=== PATIENT | male | born 1975 | race Caucasian/White ===

== ENCOUNTER 2018-05-18 21:35 | Emergency (ER) | payer BC ==
[~2018-05-18] VITALS: Ht 182.9 cm; Wt 117.9 kg
[~2018-05-18 21:35] MED LIST: BACTRIM DS TAB1 EACH PO; NOHOMEMEDICATIONS
[2018-05-18 21:58] LABS: ABSOLUTE BASOPHILS 0.1 thou/uL (0.0-0.2); ABSOLUTE EOSINOPHILS 0.1 thou/uL (0.0-0.7); ABSOLUTE LYMPHOCYTES 4.7 thou/uL (0.8-5.3); ABSOLUTE MONOCYTES 1.2 thou/uL (0.0-1.2); ABSOLUTE NEUTROPHILS 5.3 thou/uL (1.6-8.1); BASOPHILS 0.7 %; EOSINOPHILS 1.2 %; MCH 31.3 pg (26.0-34.0); MCHC 33.3 g/dL (28.0-37.0); MCV 93.8 fL (80.0-100.0); MONOCYTES 10.2 %; MPV 7.8 fl. (7.2-11.1); NUCLEATED RBCS 0 /100WBC; PLATELET COUNT* 350 thou/uL (150-400); POLYS 46.9 %; RDW-CV 13.5 % (10.5-14.5); WBC 11.4 thou/uL (4.0-11.0)
[2018-05-18 22:11] LABS: ANION GAP 7 mmol/L (7-16); BUN 13 mg/dL (7-18); CALCIUM 9.4 mg/dL (8.5-10.1); CHLORIDE 105 mmol/L (98-107); CO2 28 mmol/L (21-32); CREATININE 1.3 mg/dL (0.6-1.3); GLUCOSE 152 mg/dL (70-99); POTASSIUM 3.2 mmol/L (3.5-5.1); SODIUM 140 mmol/L (136-145)
[2018-05-18 22:18] LABS: ALBUMIN 3.9 g/dL (3.4-5.0); ALKALINE PHOSPHATASE 51 U/L (46-116); SGOT 14 U/L (15-37); SGPT 28 U/L (30-65); TOTAL BILIRUBIN 0.4 mg/dL (<0.1-1.0); TOTAL PROTEIN 7.4 g/dL (6.4-8.2); TROPONIN-I LEVEL <0.06 ng/mL (<0.06)
[2018-05-18] MEDS ORDERED: CARAFATE 1 GM TA1 G1 PO (22:55)
[2018-05-18 23:05] VITALS: BP 106/70
--- NOTE | 2018-05-19 11:49 | EKG ---
[place] [address] ELECTROCARDIOGRAM REPORT Name: BETYS RUSSELL II Room: [facility]#: [id number] Admission: 05/18/18 Attend Phys: Discharge: 05/18/18 Date of : 77 Report #: [id number] THIS REPORT FOR: //name// [facility] ED Test Date: 2018-05-18 Test Time: 21:39:24 Pat Name: BETSY RUSSELL Department: Room: Gender: M Design Analyst: DAYAMI : 1975 Requested By: Armand Vann Order Number: [id number] MD: Bob Liu Measurements Intervals [place] Rate: 117 P: 51 ME: 155 QRS: -40 QRSD: 106 T: 15 QT: 338 QTc: 472 Interpretive Statements Sinus tachycardia Probable left atrial enlargement Left axis deviation Borderline low voltage, extremity leads Baseline wander in lead(s) V2 No previous ECG available for comparison Electronically Signed On 05-19-2018 11:48:51 ORDER PACKER by Bob Liu [email or web address] <ELECTRONICALLY SIGNED> By: Bob Liu MD, [facility] 05/19/18 [id number] Bob Liu MD, [facility] /EPI
== END 2018-05-18 23:08 | disposition home or self-care (01) ==
LOC: M.ERS 21:35
PROVIDERS: Emergency Medicine Emergency Medical Services
DX: R00.2 Palpitations (principal)